=== PATIENT | male | born 1945 ===

== ENCOUNTER 2019-10-08 11:15 | Inpatient (IN) ==
[2019-10-08] MEDS ORDERED: ONDANSETRON 4 MG/2 ML VIAL IV PRN (14:16)
[2019-10-08] MEDS ORDERED: GLUCAGON 1 MG VIAL IM PRN (14:16)
[2019-10-08] MEDS ORDERED: DEXTROSE 10% 250 ML BAG IV PRN (14:16)
[2019-10-08] MEDS ORDERED: ACETAMINOPHEN 325 MG TABLET PO PRN (14:16)
[2019-10-08 14:57] LABS: Basophils % 0.5 % (0.0-0.8); Eosinophils % 0.1 % (0.00-10.9); Hemoglobin 12.9 GM/DL (14.0-18.0); Immature Granulocytes % 0.5 %; Immature Granulocytes Absolute 0.04 #; Lymphocytes # 0.6 10*3/uL (1.4-4.0); Lymphocytes % 7.8 % (21.2-54.2); Mean Corpuscular HGB Conc 29.3 GM/DL (32-36); Mean Corpuscular Volume 88.9 FL (87-102); Mean Platelet Volume 10.7 FL (9.6-12.0); Monocytes % 8.4 % (1.7-12.7); NRBC # 0.07 10*3/uL; Neutrophils % 82.7 % (38.7-73.9); Platelet Count 255 T/CUMM (130-400); Red Blood Count 4.95 MC/CUMM (3.8-5.5); Red Cell Distribution Width 19.3 % (9.3-17.3)
[2019-10-08] MEDS ORDERED: DILTIAZEM 50 MG/10 ML VIAL IV ONE (15:06)
[2019-10-08 15:18] LABS: Bilirubin,Total 1.3 MG/DL (0.2-1.0); Calcium 8.7 MG/DL (8.5-10.1); Total Protein 6.8 G/DL (6.4-8.3)
[2019-10-08] MEDS ORDERED: guaiFENesin/CODEINE 5 ML LIQUID PO PRN (15:38)
[2019-10-08] MEDS: dilTIAZem Drip 125 MG/125 ML PREMIX IV SCH (15:48)
[2019-10-08] MEDS: cefTRIAXone 1,000 MG in SYRINGE 1 EACH IV SCH (16:17)
[2019-10-08] MEDS: ASCORBIC ACID 500 MG TABLET PO SCH ×2 (16:20→21:50)
[2019-10-08] MEDS: FUROSEMIDE 40 MG/4 ML VIAL IV SCH (16:20)
[2019-10-08] MEDS: AZITHROMYCIN INJ 500 MG in SODIUM CHLORIDE 0.9% 250 ML IV SCH (16:21)
[2019-10-08] MEDS: INSULIN LISPRO 100 UNIT/ML SUBCUT SCH ×2 (17:26→21:50)
[2019-10-08] MEDS: ALBUTEROL/IPRATROPIUM 3 ML NEB RESP TX SCH (19:36)
[2019-10-08] MEDS: MAGNESIUM CHLORIDE 64 MG TABLET PO SCH (21:50)
[2019-10-08] MEDS: carvediloL 25 MG TABLET PO SCH (21:50)
[2019-10-09] MEDS: ALBUTEROL/IPRATROPIUM 3 ML NEB RESP TX SCH ×4 (00:47→20:13)
[2019-10-09 05:31] LABS: Albumin 2.4 G/DL (3.4-5.0); Bilirubin,Total 1.2 MG/DL (0.2-1.0); Calcium 8.2 MG/DL (8.5-10.1); Osmolality,Calculated 307.8 MOS/KG (273-304); Risk Ratio 2.33; Thyroid Stimulating Hormone 0.902 uIU/ml (0.358-3.74); Total Protein 5.7 G/DL (6.4-8.3)
[2019-10-09 05:39] LABS: Basophils % 0.4 % (0.0-0.8); Eosinophils % 0.1 % (0.00-10.9); Hematocrit 37.7 VOL% (42.0-52.0); Hemoglobin 11.4 GM/DL (14.0-18.0); Immature Granulocytes % 0.4 %; Immature Granulocytes Absolute 0.03 #; Lymphocytes # 0.7 10*3/uL (1.4-4.0); Lymphocytes % 9.9 % (21.2-54.2); Mean Corpuscular HGB Conc 30.2 GM/DL (32-36); Mean Corpuscular Volume 83.8 FL (87-102); Mean Platelet Volume 11.6 FL (9.6-12.0); Monocytes % 9.6 % (1.7-12.7); NRBC # 0.09 10*3/uL; Neutrophils % 79.6 % (38.7-73.9); Platelet Count 199 T/CUMM (130-400); Red Cell Distribution Width 17.4 % (9.3-17.3); White Blood Count 6.8 T/CUMM (4-12)
[2019-10-09 05:43] LABS: Hypochromasia 1+; Ovalocytes Slight; Platelet Estimate Adequate
[2019-10-09] MEDS: dilTIAZem Drip 125 MG/125 ML PREMIX IV SCH (07:31)
[2019-10-09] MEDS: INSULIN LISPRO 100 UNIT/ML SUBCUT SCH ×4 (07:56→22:48)
[2019-10-09] MEDS ORDERED: PANTOPRAZOLE 40 MG TABLET PO SCH (09:00)
[2019-10-09] MEDS ORDERED: ENOXAPARIN 30 MG/0.3 ML SYRINGE SUBCUT SCH (09:00)
[2019-10-09] MEDS: MAGNESIUM CHLORIDE 64 MG TABLET PO SCH ×2 (09:28→22:59)
[2019-10-09] MEDS: ASCORBIC ACID 500 MG TABLET PO SCH ×2 (09:28→22:22)
[2019-10-09] MEDS: DILTIAZEM 30 MG TABLET PO SCH ×3 (09:28→22:15)
[2019-10-09] MEDS: carvediloL 25 MG TABLET PO SCH ×2 (09:29→22:59)
[2019-10-09] MEDS: FUROSEMIDE 40 MG/4 ML VIAL IV SCH ×2 (09:29→16:24)
[2019-10-09] MEDS ORDERED: DIGOXIN 0.25 MG TABLET PO SCH (13:00)
[2019-10-09] MEDS ORDERED: DIGOXIN 0.125 MG TABLET PO SCH (13:00)
[2019-10-09] MEDS: AZITHROMYCIN INJ 500 MG in SODIUM CHLORIDE 0.9% 250 ML IV SCH (16:25)
[2019-10-09] MEDS: cefTRIAXone 1,000 MG in SYRINGE 1 EACH IV SCH (16:25)
[2019-10-09] MEDS: NOREPINEPHRINE 8 MG in SODIUM CHLORIDE 0.9% 242 ML IV PRN (17:16)
[2019-10-09] MEDS ORDERED: PHENYLEPHRINE DRIP 40 MG/250 ML PREMIX IV ONE (18:09)
[2019-10-09] MEDS: PHENYLEPHRINE DRIP 40 MG/250 ML PREMIX IV PRN ×2 (18:25→20:51)
[2019-10-09 18:31] LABS: Basophils % 0.5 % (0.0-0.8); Eosinophils % 0.2 % (0.00-10.9); Immature Granulocytes % 3.9 %; Immature Granulocytes Absolute 0.32 #; Lymphocytes # 1.6 10*3/uL (1.4-4.0); Lymphocytes % 18.9 % (21.2-54.2); Mean Corpuscular HGB Conc 29.3 GM/DL (32-36); Mean Corpuscular Volume 85.6 FL (87-102); Mean Platelet Volume 11.3 FL (9.6-12.0); Monocytes % 6.6 % (1.7-12.7); NRBC # 0.37 10*3/uL; Neutrophils % 69.9 % (38.7-73.9); Platelet Count 191 T/CUMM (130-400); Red Blood Count 5.34 MC/CUMM (3.8-5.5); Red Cell Distribution Width 17.6 % (9.3-17.3); White Blood Count 8.2 T/CUMM (4-12)
[2019-10-09 18:31] LABS: ABG Base Excess -3.5 MMOL/L (-2.5-2.5); ABG HCO3 21.2 MMOL/L (20-26); ABG Oxygen Saturation 81.3 % (95-100); ABG PH 7.274 (7.35-7.45); ABG TCO2 21.6 MMOL/L (23-27)
[2019-10-09 18:32] LABS: Albumin 2.6 G/DL (3.4-5.0); CKMB % 4.5 %; Hematocrit 45.7 VOL% (42.0-52.0); Hemoglobin 13.4 GM/DL (14.0-18.0); Total Protein 6.2 G/DL (6.4-8.3)
[2019-10-09 18:33] LABS: Troponin I 0.334 NG/ML (0.00-0.045)
[2019-10-09] MEDS ORDERED: NOREPINEPHRINE 4 MG/4 ML VIAL IV ONE (19:14)
[2019-10-09 19:24] LABS: ABG Base Excess -1.4 MMOL/L (-2.5-2.5); ABG HCO3 23.1 MMOL/L (20-26); ABG Oxygen Saturation 91.6 % (95-100); ABG PCO2 48.3 MM HG (35-48); ABG PH 7.324 (7.35-7.45); ABG TCO2 22.3 MMOL/L (23-27)
[2019-10-09 20:26] LABS: Apearance,Urine CLOUDY (Clear); Bilirubin,Urine Negative (Negative); Blood, Urine Large mg/dL (Negative); Glucose,Urine (UA) Negative (Negative); Ketones,Urine Negative (Negative); Nitrite,Urine Negative (Negative); Protein,Urine 30 MG/DL; RBC,Urine 149 /HPF (0-4); Urine Color Red (Yellow); Urine Urobilinogen < 2.0 EU/DL (0.2-1.0)
[2019-10-09] MEDS: PIPERACILLIN/TAZOBACTAM 3,375 MG in SODIUM CHLORIDE 0.9% 100 ML IV SCH (20:51)
[2019-10-09 23:46] LABS: CKMB % 4.6 %
[2019-10-09 23:51] LABS: Troponin I 0.405 NG/ML (0.00-0.045)
[2019-10-10] MEDS: INSULIN LISPRO 100 UNIT/ML SUBCUT SCH ×5 (00:59→23:55)
[2019-10-10] MEDS: FUROSEMIDE 40 MG/4 ML VIAL IV SCH ×2 (01:04→08:23)
[2019-10-10] MEDS: ALBUTEROL/IPRATROPIUM 3 ML NEB RESP TX SCH ×4 (01:41→20:07)
[2019-10-10] MEDS: NOREPINEPHRINE 8 MG in SODIUM CHLORIDE 0.9% 242 ML IV PRN ×2 (01:49→10:23)
[2019-10-10] MEDS: PIPERACILLIN/TAZOBACTAM 3,375 MG in SODIUM CHLORIDE 0.9% 100 ML IV SCH ×3 (02:49→17:40)
[2019-10-10 03:02] LABS: Calcium 8.2 MG/DL (8.5-10.1)
[2019-10-10 03:07] LABS: CKMB % 4.8 %
[2019-10-10 03:11] LABS: Troponin I 0.535 NG/ML (0.00-0.045)
[2019-10-10 03:38] LABS: Basophils % 0.2 % (0.0-0.8); Eosinophils % 0.1 % (0.00-10.9); Hemoglobin 13.8 GM/DL (14.0-18.0); Immature Granulocytes % 0.8 %; Immature Granulocytes Absolute 0.12 #; Lymphocytes # 0.9 10*3/uL (1.4-4.0); Lymphocytes % 5.7 % (21.2-54.2); Mean Corpuscular HGB Conc 29.7 GM/DL (32-36); Mean Corpuscular Volume 83.9 FL (87-102); Mean Platelet Volume 10.9 FL (9.6-12.0); Monocytes % 7.8 % (1.7-12.7); NRBC # 0.32 10*3/uL; Neutrophils % 85.4 % (38.7-73.9); Platelet Count 239 T/CUMM (130-400); Red Blood Count 5.53 MC/CUMM (3.8-5.5); Red Cell Distribution Width 17.7 % (9.3-17.3); White Blood Count 14.9 T/CUMM (4-12)
[2019-10-10 03:41] LABS: Hematocrit 46.4 VOL% (42.0-52.0)
[2019-10-10 04:50] LABS: CKMB % 4.8 %
[2019-10-10 04:52] LABS: Troponin I 0.55 NG/ML (0.00-0.045)
[2019-10-10 04:56] LABS: ABG HCO3 23.7 MMOL/L (20-26); ABG Oxygen Saturation 99.2 % (95-100); ABG PCO2 35.6 MM HG (35-48); ABG PH 7.441 (7.35-7.45); ABG TCO2 24.8 MMOL/L (23-27)
[2019-10-10 05:30] LABS: Platelet Estimate Normal
[2019-10-10 05:31] LABS: Hypochromasia Slight
[2019-10-10] MEDS: PANTOPRAZOLE 40 MG VIAL IV SCH (09:31)
[2019-10-10] MEDS: MAGNESIUM CHLORIDE 64 MG TABLET PO SCH ×2 (09:32→20:11)
[2019-10-10] MEDS: AZITHROMYCIN 250 MG TABLET PO SCH (09:32)
[2019-10-10] MEDS: ASCORBIC ACID 500 MG TABLET PO SCH ×2 (09:32→21:20)
[2019-10-10] MEDS: ENOXAPARIN 100 MG/ML SYRINGE SUBCUT SCH (11:39)
[2019-10-10] MEDS ORDERED: SODIUM BICARBONATE 50 MEQ/50 ML SYRINGE IV ONE (18:29)
[2019-10-10] MEDS ORDERED: EPINEPHrine 1 MG/10 ML SYRINGE ONE (18:29)
[2019-10-11] MEDS: DEXTROSE 10% 250 ML BAG IV PRN ×2 (00:17→05:44)
[2019-10-11] MEDS: ALBUTEROL/IPRATROPIUM 3 ML NEB RESP TX SCH ×3 (00:35→15:01)
[2019-10-11] MEDS: PIPERACILLIN/TAZOBACTAM 3,375 MG in SODIUM CHLORIDE 0.9% 100 ML IV SCH ×2 (02:43→14:32)
[2019-10-11 04:21] LABS: ABG Base Excess 2.2 MMOL/L (-2.5-2.5); ABG HCO3 23.5 MMOL/L (20-26); ABG Oxygen Saturation 99.1 % (95-100); ABG PCO2 27.2 MM HG (35-48); ABG PH 7.555 (7.35-7.45); ABG PO2 229.3 MM HG (80-95); ABG TCO2 24.4 MMOL/L (23-27); Allen Test Positive; Pt O2 Delivery Device Ventilator
[2019-10-11 04:52] LABS: Basophils % 0.5 % (0.0-0.8); Eosinophils # 0.1 10*3/uL (0.0-0.87); Eosinophils % 1.1 % (0.00-10.9); Hematocrit 37.5 VOL% (42.0-52.0); Hemoglobin 12.3 GM/DL (14.0-18.0); Immature Granulocytes % 0.5 %; Immature Granulocytes Absolute 0.04 #; Lymphocytes # 1.3 10*3/uL (1.4-4.0); Lymphocytes % 17.7 % (21.2-54.2); Mean Corpuscular HGB Conc 32.8 GM/DL (32-36); Mean Corpuscular Volume 84.7 FL (87-102); Monocytes % 9.3 % (1.7-12.7); NRBC # 0.11 10*3/uL; Neutrophils % 70.9 % (38.7-73.9); Platelet Count 172 T/CUMM (130-400); Red Blood Count 4.43 MC/CUMM (3.8-5.5); Red Cell Distribution Width 19.9 % (9.3-17.3); White Blood Count 7.4 T/CUMM (4-12)
[2019-10-11 05:26] LABS: Calcium 8.3 MG/DL (8.5-10.1); Osmolality,Calculated 316.4 MOS/KG (273-304)
[2019-10-11] MEDS: INSULIN LISPRO 100 UNIT/ML SUBCUT SCH ×3 (05:44→18:38)
[2019-10-11] MEDS ORDERED: guaiFENesin 200 MG/10 ML UDCUP PER TUBE SCH ×2 (09:00)
[2019-10-11] MEDS: MAGNESIUM CHLORIDE 64 MG TABLET PO SCH ×2 (09:26→20:16)
[2019-10-11] MEDS: guaiFENesin 200 MG/10 ML UDCUP PER TUBE SCH ×3 (09:26→20:59)
[2019-10-11] MEDS: AZITHROMYCIN 250 MG TABLET PO SCH (09:26)
[2019-10-11] MEDS: PANTOPRAZOLE 40 MG VIAL IV SCH (09:28)
[2019-10-11] MEDS: ASCORBIC ACID 500 MG TABLET PO SCH ×2 (09:33→20:59)
[2019-10-11] MEDS: ENOXAPARIN 100 MG/ML SYRINGE SUBCUT SCH (12:07)
[2019-10-12] MEDS: INSULIN LISPRO 100 UNIT/ML SUBCUT SCH ×4 (00:37→17:42)
[2019-10-12] MEDS: PIPERACILLIN/TAZOBACTAM 3,375 MG in SODIUM CHLORIDE 0.9% 100 ML IV SCH (02:56)
[2019-10-12] MEDS: guaiFENesin 200 MG/10 ML UDCUP PER TUBE SCH ×4 (02:56→21:29)
[2019-10-12 03:37] LABS: Basophils % 0.5 % (0.0-0.8); Eosinophils # 0.1 10*3/uL (0.0-0.87); Eosinophils % 1.9 % (0.00-10.9); Immature Granulocytes % 0.4 %; Immature Granulocytes Absolute 0.03 #; Lymphocytes # 1.1 10*3/uL (1.4-4.0); Lymphocytes % 14.8 % (21.2-54.2); Mean Corpuscular HGB Conc 34.3 GM/DL (32-36); Mean Corpuscular Volume 89.3 FL (87-102); Mean Platelet Volume 11.7 FL (9.6-12.0); Monocytes % 10.3 % (1.7-12.7); NRBC # 0.03 10*3/uL; Neutrophils % 72.1 % (38.7-73.9); Platelet Count 158 T/CUMM (130-400); Red Blood Count 3.92 MC/CUMM (3.8-5.5); Red Cell Distribution Width 21.5 % (9.3-17.3); White Blood Count 7.3 T/CUMM (4-12)
[2019-10-12 03:51] LABS: Calcium 7.7 MG/DL (8.5-10.1); Osmolality,Calculated 313.6 MOS/KG (273-304)
[2019-10-12] MEDS: ASCORBIC ACID 500 MG TABLET PO SCH ×2 (08:37→21:28)
[2019-10-12] MEDS: MAGNESIUM CHLORIDE 64 MG TABLET PO SCH ×2 (08:37→21:29)
[2019-10-12] MEDS: PANTOPRAZOLE 40 MG VIAL IV SCH (08:37)
[2019-10-12] MEDS: AZITHROMYCIN 250 MG TABLET PO SCH (08:37)
[2019-10-12 08:53] LABS: ABG Base Excess 2.9 MMOL/L (-2.5-2.5); ABG PCO2 36.8 MM HG (35-48); ABG PH 7.465 (7.35-7.45); ABG TCO2 23.1 MMOL/L (23-27)
[2019-10-12] MEDS: FUROSEMIDE INJ 100 MG in SODIUM CHLORIDE 0.9% 90 ML IV SCH ×3 (10:50→21:14)
[2019-10-12] MEDS: cefTRIAXone 1,000 MG in SYRINGE 1 EACH IV SCH (13:05)
[2019-10-12] MEDS: ENOXAPARIN 100 MG/ML SYRINGE SUBCUT SCH (13:05)
[2019-10-12] MEDS: metroNIDAZOLE INJ 500 MG in PREMIX 1 EACH IV SCH ×2 (13:06→21:28)
[2019-10-13] MEDS: INSULIN LISPRO 100 UNIT/ML SUBCUT SCH ×4 (01:38→18:09)
[2019-10-13 04:39] LABS: ABG Base Excess 5.1 MMOL/L (-2.5-2.5); ABG Oxygen Saturation 98.3 % (95-100); ABG PCO2 41.8 MM HG (35-48); ABG PH 7.456 (7.35-7.45); ABG TCO2 25.9 MMOL/L (23-27); Allen Test Positive; Pt O2 Delivery Device Ventilator
[2019-10-13] MEDS: FUROSEMIDE INJ 100 MG in SODIUM CHLORIDE 0.9% 90 ML IV SCH ×2 (04:47→06:37)
[2019-10-13] MEDS: guaiFENesin 200 MG/10 ML UDCUP PER TUBE SCH ×4 (05:15→20:36)
[2019-10-13 06:07] LABS: Basophils % 0.5 % (0.0-0.8); Eosinophils # 0.1 10*3/uL (0.0-0.87); Eosinophils % 1.8 % (0.00-10.9); Hematocrit 38.4 VOL% (42.0-52.0); Hemoglobin 11.9 GM/DL (14.0-18.0); Immature Granulocytes % 0.6 %; Immature Granulocytes Absolute 0.04 #; Lymphocytes # 0.8 10*3/uL (1.4-4.0); Lymphocytes % 12.4 % (21.2-54.2); Mean Corpuscular Volume 85.7 FL (87-102); Mean Platelet Volume 11.1 FL (9.6-12.0); Monocytes % 10.2 % (1.7-12.7); NRBC # 0.04 10*3/uL; Neutrophils % 74.5 % (38.7-73.9); Platelet Count 156 T/CUMM (130-400); Red Blood Count 4.48 MC/CUMM (3.8-5.5); Red Cell Distribution Width 19.8 % (9.3-17.3); White Blood Count 6.6 T/CUMM (4-12)
[2019-10-13] MEDS: metroNIDAZOLE INJ 500 MG in PREMIX 1 EACH IV SCH ×3 (06:13→20:34)
[2019-10-13 06:27] LABS: Osmolality,Calculated 311.4 MOS/KG (273-304)
[2019-10-13] MEDS: MAGNESIUM CHLORIDE 64 MG TABLET PO SCH ×2 (08:40→20:36)
[2019-10-13] MEDS: PANTOPRAZOLE 40 MG VIAL IV SCH (08:40)
[2019-10-13] MEDS: ASCORBIC ACID 500 MG TABLET PO SCH ×2 (08:40→20:36)
[2019-10-13] MEDS: ENOXAPARIN 100 MG/ML SYRINGE SUBCUT SCH (11:58)
[2019-10-13] MEDS: cefTRIAXone 1,000 MG in SYRINGE 1 EACH IV SCH (11:58)
[2019-10-13] MEDS: FUROSEMIDE 40 MG/4 ML VIAL IV SCH (20:36)
[2019-10-14] MEDS: INSULIN LISPRO 100 UNIT/ML SUBCUT SCH ×4 (01:23→18:39)
[2019-10-14] MEDS: guaiFENesin 200 MG/10 ML UDCUP PER TUBE SCH ×4 (04:37→20:32)
[2019-10-14] MEDS: metroNIDAZOLE INJ 500 MG in PREMIX 1 EACH IV SCH ×3 (04:51→23:32)
[2019-10-14 05:07] LABS: ABG Base Excess 6.5 MMOL/L (-2.5-2.5); ABG HCO3 30.3 MMOL/L (20-26); ABG Oxygen Saturation 95.8 % (95-100); ABG PCO2 47.4 MM HG (35-48); ABG PH 7.435 (7.35-7.45); ABG PO2 75.3 MM HG (80-95); ABG TCO2 28.1 MMOL/L (23-27); Allen Test Positive; Pt O2 Delivery Device Ventilator
[2019-10-14 06:21] LABS: Basophils % 0.4 % (0.0-0.8); Eosinophils # 0.1 10*3/uL (0.0-0.87); Eosinophils % 1.4 % (0.00-10.9); Hematocrit 30.2 VOL% (42.0-52.0); Hemoglobin 11.3 GM/DL (14.0-18.0); Immature Granulocytes % 0.7 %; Immature Granulocytes Absolute 0.05 #; Lymphocytes # 0.7 10*3/uL (1.4-4.0); Lymphocytes % 9.5 % (21.2-54.2); Mean Corpuscular HGB Conc 37.4 GM/DL (32-36); Mean Corpuscular Volume 90.4 FL (87-102); Mean Platelet Volume 11.5 FL (9.6-12.0); Monocytes % 12.4 % (1.7-12.7); NRBC # 0.05 10*3/uL; Neutrophils % 75.6 % (38.7-73.9); Platelet Count 134 T/CUMM (130-400); Red Blood Count 3.34 MC/CUMM (3.8-5.5); Red Cell Distribution Width 20.6 % (9.3-17.3); White Blood Count 7.3 T/CUMM (4-12)
[2019-10-14 06:35] LABS: Calcium 7.9 MG/DL (8.5-10.1); Osmolality,Calculated 312.3 MOS/KG (273-304)
[2019-10-14] MEDS ORDERED: POTASSIUM CHLORIDE 20 MEQ/15 ML UDCUP PER TUBE PRN (07:48)
[2019-10-14] MEDS: FUROSEMIDE 40 MG/4 ML VIAL IV SCH (10:28)
[2019-10-14] MEDS: PANTOPRAZOLE 40 MG VIAL IV SCH (10:28)
[2019-10-14] MEDS: MAGNESIUM CHLORIDE 64 MG TABLET PO SCH ×2 (10:28→20:32)
[2019-10-14] MEDS: ASCORBIC ACID 500 MG TABLET PO SCH ×2 (10:28→20:32)
[2019-10-14] MEDS: ENOXAPARIN 100 MG/ML SYRINGE SUBCUT SCH (15:01)
[2019-10-14] MEDS: cefTRIAXone 1,000 MG in SYRINGE 1 EACH IV SCH (15:11)
[2019-10-14] MEDS: POTASSIUM CHLORIDE RIDER 10 MEQ in PREMIX 1 EACH IV PRN ×2 (17:40→18:42)
[2019-10-14] MEDS: APIXABAN 5 MG TABLET PO SCH (20:32)
[2019-10-15] MEDS ORDERED: FUROSEMIDE 40 MG/4 ML VIAL IV ONE (00:24)
[2019-10-15] MEDS: INSULIN LISPRO 100 UNIT/ML SUBCUT SCH ×4 (00:26→18:38)
[2019-10-15] MEDS: guaiFENesin 200 MG/10 ML UDCUP PER TUBE SCH ×4 (04:21→22:03)
[2019-10-15 05:13] LABS: Allen Test Positive
[2019-10-15 05:14] LABS: ABG Base Excess 5.1 MMOL/L (-2.5-2.5); ABG Oxygen Saturation 97.2 % (95-100); ABG PCO2 52.8 MM HG (35-48); ABG PH 7.384 (7.35-7.45); ABG TCO2 27.9 MMOL/L (23-27)
[2019-10-15 06:15] LABS: Basophils # 0.1 10*3/uL (0.0-0.2); Basophils % 0.7 % (0.0-0.8); Eosinophils % 0.2 % (0.00-10.9); Hemoglobin 11.9 GM/DL (14.0-18.0); Immature Granulocytes Absolute 0.09 #; Lymphocytes # 0.8 10*3/uL (1.4-4.0); Lymphocytes % 9.4 % (21.2-54.2); Mean Corpuscular Volume 89.3 FL (87-102); Mean Platelet Volume 11.8 FL (9.6-12.0); Monocytes % 12.2 % (1.7-12.7); NRBC # 0.08 10*3/uL; Neutrophils % 76.5 % (38.7-73.9); Platelet Count 153 T/CUMM (130-400); Red Blood Count 3.92 MC/CUMM (3.8-5.5); Red Cell Distribution Width 21.4 % (9.3-17.3)
[2019-10-15] MEDS: metroNIDAZOLE INJ 500 MG in PREMIX 1 EACH IV SCH ×3 (06:21→23:12)
[2019-10-15 06:34] LABS: Calcium 8.6 MG/DL (8.5-10.1); Osmolality,Calculated 316.3 MOS/KG (273-304)
[2019-10-15] MEDS ORDERED: FUROSEMIDE 40 MG/4 ML VIAL IV SCH (08:54)
[2019-10-15] MEDS: PANTOPRAZOLE 40 MG VIAL IV SCH (09:02)
[2019-10-15] MEDS: MAGNESIUM CHLORIDE 64 MG TABLET PO SCH ×2 (09:06→22:03)
[2019-10-15] MEDS: ASCORBIC ACID 500 MG TABLET PO SCH ×2 (09:06→22:03)
[2019-10-15] MEDS: APIXABAN 5 MG TABLET PO SCH ×2 (09:06→22:03)
[2019-10-15] MEDS: METOPROLOL TARTRATE 25 MG TABLET PO SCH ×2 (10:15→22:03)
[2019-10-15] MEDS: cefTRIAXone 1,000 MG in SYRINGE 1 EACH IV SCH (11:50)
[2019-10-15] MEDS: FUROSEMIDE 40 MG/4 ML VIAL IV SCH (15:41)
[2019-10-16 04:12] LABS: ABG Base Excess 2.4 MMOL/L (-2.5-2.5); ABG HCO3 26.5 MMOL/L (20-26); ABG Oxygen Saturation 96.7 % (95-100); ABG PCO2 53.3 MM HG (35-48); ABG PH 7.348 (7.35-7.45); ABG PO2 89.1 MM HG (80-95); ABG TCO2 25.7 MMOL/L (23-27); Allen Test Positive
[2019-10-16] MEDS: INSULIN LISPRO 100 UNIT/ML SUBCUT SCH ×4 (04:27→18:38)
[2019-10-16] MEDS: guaiFENesin 200 MG/10 ML UDCUP PER TUBE SCH ×4 (04:27→20:38)
[2019-10-16 06:44] LABS: Calcium 8.8 MG/DL (8.5-10.1); Osmolality,Calculated 325.3 MOS/KG (273-304)
[2019-10-16 06:58] LABS: Basophils # 0.1 10*3/uL (0.0-0.2); Basophils % 0.7 % (0.0-0.8); Eosinophils % 0.1 % (0.00-10.9); Immature Granulocytes % 1.2 %; Immature Granulocytes Absolute 0.13 #; Lymphocytes # 0.8 10*3/uL (1.4-4.0); Lymphocytes % 7.3 % (21.2-54.2); Mean Corpuscular HGB Conc 29.8 GM/DL (32-36); Mean Corpuscular Volume 84.1 FL (87-102); Mean Platelet Volume 12.4 FL (9.6-12.0); Monocytes % 10.9 % (1.7-12.7); NRBC # 0.16 10*3/uL; Neutrophils % 79.8 % (38.7-73.9); Platelet Count 206 T/CUMM (130-400); Red Blood Count 5.23 MC/CUMM (3.8-5.5); Red Cell Distribution Width 18.7 % (9.3-17.3); White Blood Count 10.6 T/CUMM (4-12)
[2019-10-16 06:59] LABS: Hemoglobin 13.1 GM/DL (14.0-18.0)
[2019-10-16 07:07] LABS: Anisocytosis 1+; Hypochromasia 1+; Microcytosis 1+; Polychromasia Slight
[2019-10-16 07:08] LABS: Ovalocytes Slight; Platelet Estimate Normal; Target Cells Slight
[2019-10-16] MEDS: metroNIDAZOLE INJ 500 MG in PREMIX 1 EACH IV SCH ×3 (07:15→22:32)
[2019-10-16] MEDS: FUROSEMIDE 40 MG/4 ML VIAL IV SCH ×2 (07:57→15:52)
[2019-10-16] MEDS: APIXABAN 5 MG TABLET PO SCH ×2 (08:28→20:38)
[2019-10-16] MEDS: METOPROLOL TARTRATE 25 MG TABLET PO SCH ×2 (08:28→20:38)
[2019-10-16] MEDS: ASCORBIC ACID 500 MG TABLET PO SCH ×2 (08:28→20:38)
[2019-10-16] MEDS: PANTOPRAZOLE 40 MG VIAL IV SCH (08:29)
[2019-10-16] MEDS: MAGNESIUM CHLORIDE 64 MG TABLET PO SCH (08:30)
[2019-10-16] MEDS ORDERED: METOPROLOL TARTRATE 25 MG TABLET PO ONE (10:20)
[2019-10-16] MEDS: cefTRIAXone 1,000 MG in SYRINGE 1 EACH IV SCH (11:44)
[2019-10-16] MEDS ORDERED: ALBUTEROL/IPRATROPIUM 3 ML NEB RESP TX PRN (15:51)
[2019-10-17] MEDS: INSULIN LISPRO 100 UNIT/ML SUBCUT SCH ×4 (00:48→18:50)
[2019-10-17] MEDS: guaiFENesin 200 MG/10 ML UDCUP PER TUBE SCH ×4 (03:20→21:09)
[2019-10-17] MEDS: metroNIDAZOLE INJ 500 MG in PREMIX 1 EACH IV SCH ×3 (06:32→23:12)
[2019-10-17] MEDS: FUROSEMIDE 40 MG/4 ML VIAL IV SCH (09:33)
[2019-10-17] MEDS: APIXABAN 5 MG TABLET PO SCH ×2 (09:35→21:10)
[2019-10-17] MEDS: METOPROLOL TARTRATE 25 MG TABLET PO SCH ×2 (09:35→21:19)
[2019-10-17] MEDS: ASCORBIC ACID 500 MG TABLET PO SCH ×2 (09:35→21:09)
[2019-10-17] MEDS: PANTOPRAZOLE 40 MG VIAL IV SCH (09:35)
[2019-10-17 10:47] LABS: Basophils # 0.1 10*3/uL (0.0-0.2); Basophils % 0.6 % (0.0-0.8); Eosinophils # 0.1 10*3/uL (0.0-0.87); Eosinophils % 1.1 % (0.00-10.9); Hemoglobin 12.8 GM/DL (14.0-18.0); Immature Granulocytes % 1.4 %; Immature Granulocytes Absolute 0.11 #; Lymphocytes # 0.8 10*3/uL (1.4-4.0); Lymphocytes % 10.2 % (21.2-54.2); Mean Corpuscular HGB Conc 33.7 GM/DL (32-36); Mean Corpuscular Volume 89.6 FL (87-102); Mean Platelet Volume 12.1 FL (9.6-12.0); Monocytes % 12.7 % (1.7-12.7); NRBC # 0.17 10*3/uL; Platelet Count 183 T/CUMM (130-400); Red Blood Count 4.24 MC/CUMM (3.8-5.5); Red Cell Distribution Width 21.6 % (9.3-17.3)
[2019-10-17 12:25] LABS: Calcium 8.4 MG/DL (8.5-10.1); Osmolality,Calculated 329.4 MOS/KG (273-304)
[2019-10-17] MEDS: cefTRIAXone 1,000 MG in SYRINGE 1 EACH IV SCH (12:53)
[2019-10-17] MEDS: FUROSEMIDE 80 MG TABLET NG SCH (15:47)
[2019-10-17] MEDS ORDERED: FUROSEMIDE 80 MG TABLET PO SCH (16:00)
[2019-10-18] MEDS: INSULIN LISPRO 100 UNIT/ML SUBCUT SCH ×4 (00:17→19:36)
[2019-10-18] MEDS: guaiFENesin 200 MG/10 ML UDCUP PER TUBE SCH ×4 (03:51→21:19)
[2019-10-18] MEDS: metroNIDAZOLE INJ 500 MG in PREMIX 1 EACH IV SCH ×3 (06:40→22:34)
[2019-10-18] MEDS: ASCORBIC ACID 500 MG TABLET PO SCH ×2 (08:39→21:19)
[2019-10-18 09:11] LABS: Basophils # 0.1 10*3/uL (0.0-0.2); Basophils % 0.6 % (0.0-0.8); Eosinophils % 0.4 % (0.00-10.9); Hemoglobin 12.2 GM/DL (14.0-18.0); Immature Granulocytes % 0.9 %; Immature Granulocytes Absolute 0.07 #; Lymphocytes # 0.9 10*3/uL (1.4-4.0); Lymphocytes % 11.5 % (21.2-54.2); Mean Corpuscular HGB Conc 32.1 GM/DL (32-36); Mean Platelet Volume 11.5 FL (9.6-12.0); Monocytes % 10.5 % (1.7-12.7); NRBC # 0.11 10*3/uL; Neutrophils % 76.1 % (38.7-73.9); Platelet Count 185 T/CUMM (130-400); Red Blood Count 4.37 MC/CUMM (3.8-5.5); Red Cell Distribution Width 20.6 % (9.3-17.3)
[2019-10-18 09:37] LABS: Calcium 8.2 MG/DL (8.5-10.1); Prealbumin 13.4 MG/DL (20-40)
[2019-10-18] MEDS: FUROSEMIDE 80 MG TABLET NG SCH (10:04)
[2019-10-18] MEDS: APIXABAN 5 MG TABLET PO SCH ×2 (10:14→21:20)
[2019-10-18] MEDS: PANTOPRAZOLE 40 MG VIAL IV SCH (10:14)
[2019-10-18] MEDS: METOPROLOL TARTRATE 25 MG TABLET PO SCH ×2 (10:14→21:19)
[2019-10-18] MEDS ORDERED: DEXTROSE 5% 1,000 ML IV SCH (12:30)
[2019-10-18] MEDS: cefTRIAXone 1,000 MG in SYRINGE 1 EACH IV SCH (13:33)
[2019-10-18] MEDS: FUROSEMIDE 40 MG TABLET PO SCH (15:59)
[2019-10-19] MEDS: guaiFENesin 200 MG/10 ML UDCUP PER TUBE SCH ×4 (02:43→21:04)
[2019-10-19] MEDS: INSULIN LISPRO 100 UNIT/ML SUBCUT SCH ×4 (06:00→17:10)
[2019-10-19 06:05] LABS: Basophils # 0.1 10*3/uL (0.0-0.2); Basophils % 0.9 % (0.0-0.8); Eosinophils % 0.3 % (0.00-10.9); Hematocrit 35.9 VOL% (42.0-52.0); Hemoglobin 12.5 GM/DL (14.0-18.0); Immature Granulocytes Absolute 0.07 #; Lymphocytes # 1.1 10*3/uL (1.4-4.0); Lymphocytes % 16.1 % (21.2-54.2); Mean Corpuscular HGB Conc 34.8 GM/DL (32-36); Mean Platelet Volume 12.4 FL (9.6-12.0); Monocytes % 11.3 % (1.7-12.7); Neutrophils % 70.4 % (38.7-73.9); Platelet Count 201 T/CUMM (130-400); Red Blood Count 4.08 MC/CUMM (3.8-5.5); Red Cell Distribution Width 21.1 % (9.3-17.3); White Blood Count 6.9 T/CUMM (4-12)
[2019-10-19 06:26] LABS: Calcium 8.6 MG/DL (8.5-10.1); Osmolality,Calculated 334.7 MOS/KG (273-304)
[2019-10-19] MEDS: metroNIDAZOLE INJ 500 MG in PREMIX 1 EACH IV SCH ×3 (07:00→23:06)
[2019-10-19] MEDS: METOPROLOL TARTRATE 25 MG TABLET PO SCH ×2 (09:23→21:03)
[2019-10-19] MEDS: APIXABAN 5 MG TABLET PO SCH ×2 (09:23→21:03)
[2019-10-19] MEDS: FUROSEMIDE 40 MG TABLET PO SCH (09:24)
[2019-10-19] MEDS: PANTOPRAZOLE 40 MG VIAL IV SCH (09:27)
[2019-10-19] MEDS: ASCORBIC ACID 500 MG TABLET PO SCH ×2 (09:27→21:03)
[2019-10-19] MEDS ORDERED: TUBERCULIN SKIN TEST 0.1 ML SYRINGE INTRADERM ONE (09:27)
[2019-10-19] MEDS ORDERED: METOPROLOL TARTRATE 5 MG/5 ML VIAL IV ONE (10:58)
[2019-10-19] MEDS ORDERED: SODIUM CHLORIDE 0.45% 1,000 ML IV SCH (11:00)
[2019-10-19] MEDS ORDERED: SODIUM CHLORIDE 0.9% 1,000 ML IV SCH (11:00)
[2019-10-19] MEDS: cefTRIAXone 1,000 MG in SYRINGE 1 EACH IV SCH (12:30)
[2019-10-19] MEDS: dilTIAZem Drip 125 MG/125 ML PREMIX IV SCH (18:09)
[2019-10-19] MEDS: DEXTROSE 5% 1,000 ML IV SCH (18:10)
[2019-10-20] MEDS: INSULIN LISPRO 100 UNIT/ML SUBCUT SCH ×4 (01:08→17:04)
[2019-10-20] MEDS: DEXTROSE 5% 1,000 ML IV SCH ×2 (03:48→12:35)
[2019-10-20] MEDS: guaiFENesin 200 MG/10 ML UDCUP PER TUBE SCH ×4 (03:52→21:27)
[2019-10-20 05:07] LABS: Basophils # 0.1 10*3/uL (0.0-0.2); Basophils % 0.9 % (0.0-0.8); Eosinophils % 0.6 % (0.00-10.9); Hematocrit 36.8 VOL% (42.0-52.0); Hemoglobin 11.4 GM/DL (14.0-18.0); Immature Granulocytes % 0.7 %; Immature Granulocytes Absolute 0.05 #; Lymphocytes % 14.2 % (21.2-54.2); Mean Corpuscular Volume 88.5 FL (87-102); Mean Platelet Volume 11.5 FL (9.6-12.0); Monocytes % 9.4 % (1.7-12.7); NRBC # 0.07 10*3/uL; Neutrophils % 74.2 % (38.7-73.9); Platelet Count 188 T/CUMM (130-400); Red Blood Count 4.16 MC/CUMM (3.8-5.5); Red Cell Distribution Width 21.2 % (9.3-17.3); White Blood Count 6.7 T/CUMM (4-12)
[2019-10-20 05:59] LABS: Calcium 8.2 MG/DL (8.5-10.1); Osmolality,Calculated 336.1 MOS/KG (273-304)
[2019-10-20] MEDS: ASCORBIC ACID 500 MG TABLET PO SCH ×2 (09:37→21:27)
[2019-10-20] MEDS: METOPROLOL TARTRATE 25 MG TABLET PO SCH ×2 (09:37→21:26)
[2019-10-20] MEDS: PANTOPRAZOLE 40 MG VIAL IV SCH (09:38)
[2019-10-20] MEDS: APIXABAN 5 MG TABLET PO SCH ×2 (09:38→21:26)
[2019-10-20 12:57] LABS: Lymphocytes,Pleural Fluid 24 %; Monocytes,Pleural Fluid 7 %; Neutrophils,Pleural Fluid 69 %
[2019-10-20 13:10] LABS: RBC,Pleural Fluid 25674 T/CUMM
[2019-10-20 13:16] LABS: LDH,Body Fluid 176 U/L; Total Protein,Body Fluid < 2.0 G/DL
[2019-10-20] MEDS: dilTIAZem Drip 125 MG/125 ML PREMIX IV SCH (17:07)
[2019-10-21] MEDS: DEXTROSE 5% 1,000 ML IV SCH ×2 (02:33→09:13)
[2019-10-21] MEDS: INSULIN LISPRO 100 UNIT/ML SUBCUT SCH ×4 (02:36→18:07)
[2019-10-21] MEDS: guaiFENesin 200 MG/10 ML UDCUP PER TUBE SCH ×4 (03:54→21:24)
[2019-10-21 06:32] LABS: Basophils % 0.4 % (0.0-0.8); Eosinophils # 0.1 10*3/uL (0.0-0.87); Eosinophils % 1.4 % (0.00-10.9); Hematocrit 37.1 VOL% (42.0-52.0); Immature Granulocytes % 0.8 %; Immature Granulocytes Absolute 0.07 #; Lymphocytes % 11.3 % (21.2-54.2); Mean Corpuscular Volume 89.4 FL (87-102); Mean Platelet Volume 12.7 FL (9.6-12.0); Monocytes % 6.5 % (1.7-12.7); NRBC # 0.09 10*3/uL; Neutrophils % 79.6 % (38.7-73.9); Platelet Count 192 T/CUMM (130-400); Red Blood Count 4.15 MC/CUMM (3.8-5.5); Red Cell Distribution Width 22.2 % (9.3-17.3); White Blood Count 9.1 T/CUMM (4-12)
[2019-10-21 07:22] LABS: Calcium 8.3 MG/DL (8.5-10.1); Osmolality,Calculated 326.4 MOS/KG (273-304)
[2019-10-21] MEDS: METOPROLOL TARTRATE 25 MG TABLET PO SCH ×2 (08:54→21:24)
[2019-10-21] MEDS: APIXABAN 5 MG TABLET PO SCH ×2 (08:54→21:25)
[2019-10-21] MEDS: ASCORBIC ACID 500 MG TABLET PO SCH ×2 (08:55→21:24)
[2019-10-21] MEDS: hydrALAZINE 10 MG TABLET PO SCH ×2 (08:55→21:25)
[2019-10-21] MEDS: PANTOPRAZOLE 40 MG VIAL IV SCH (08:55)
[2019-10-21] MEDS: FUROSEMIDE 40 MG/5 ML UDCUP PO SCH (15:42)
[2019-10-21] MEDS: dilTIAZem Drip 125 MG/125 ML PREMIX IV SCH (16:44)
[2019-10-22] MEDS: INSULIN LISPRO 100 UNIT/ML SUBCUT SCH ×5 (00:32→21:14)
[2019-10-22] MEDS: guaiFENesin 200 MG/10 ML UDCUP PER TUBE SCH ×4 (04:17→21:14)
[2019-10-22 05:45] LABS: Basophils % 0.4 % (0.0-0.8); Eosinophils # 0.1 10*3/uL (0.0-0.87); Eosinophils % 1.4 % (0.00-10.9); Hematocrit 35.5 VOL% (42.0-52.0); Hemoglobin 12.7 GM/DL (14.0-18.0); Immature Granulocytes % 0.6 %; Immature Granulocytes Absolute 0.05 #; Lymphocytes % 12.5 % (21.2-54.2); Mean Corpuscular HGB Conc 35.8 GM/DL (32-36); Mean Corpuscular Volume 90.1 FL (87-102); Mean Platelet Volume 12.7 FL (9.6-12.0); Monocytes % 6.9 % (1.7-12.7); NRBC # 0.06 10*3/uL; Neutrophils % 78.2 % (38.7-73.9); Platelet Count 218 T/CUMM (130-400); Red Blood Count 3.94 MC/CUMM (3.8-5.5); Red Cell Distribution Width 22.4 % (9.3-17.3); White Blood Count 7.9 T/CUMM (4-12)
[2019-10-22 06:06] LABS: Hypochromasia 1+; Target Cells Slight
[2019-10-22 06:07] LABS: Anisocytosis 1+; Ovalocytes Slight
[2019-10-22 06:08] LABS: Platelet Estimate Normal
[2019-10-22 06:10] LABS: Calcium 8.1 MG/DL (8.5-10.1); Osmolality,Calculated 318.6 MOS/KG (273-304)
[2019-10-22] MEDS ORDERED: TUBERCULIN SKIN TEST 0.1 ML SYRINGE INTRADERM ONE (07:49)
[2019-10-22] MEDS: FUROSEMIDE 40 MG/5 ML UDCUP PO SCH ×2 (09:11→16:33)
[2019-10-22] MEDS: ASCORBIC ACID 500 MG TABLET PO SCH ×2 (09:12→21:14)
[2019-10-22] MEDS: PANTOPRAZOLE 40 MG VIAL IV SCH (09:12)
[2019-10-22] MEDS: METOPROLOL TARTRATE 25 MG TABLET PO SCH ×2 (09:12→21:14)
[2019-10-22] MEDS: hydrALAZINE 10 MG TABLET PO SCH ×2 (09:12→21:14)
[2019-10-22] MEDS: APIXABAN 5 MG TABLET PO SCH ×2 (09:12→21:14)
[2019-10-22] MEDS: dilTIAZem Drip 125 MG/125 ML PREMIX IV SCH (18:09)
[2019-10-23] MEDS: guaiFENesin 200 MG/10 ML UDCUP PER TUBE SCH ×4 (03:12→21:23)
[2019-10-23] MEDS: FUROSEMIDE 40 MG/5 ML UDCUP PO SCH ×2 (09:13→16:38)
[2019-10-23] MEDS: PANTOPRAZOLE 40 MG VIAL IV SCH (09:14)
[2019-10-23] MEDS: METOPROLOL TARTRATE 25 MG TABLET PO SCH ×2 (09:14→21:23)
[2019-10-23] MEDS: hydrALAZINE 10 MG TABLET PO SCH ×2 (09:14→21:24)
[2019-10-23] MEDS: ASCORBIC ACID 500 MG TABLET PO SCH ×2 (09:14→21:24)
[2019-10-23] MEDS: APIXABAN 5 MG TABLET PO SCH ×2 (09:14→21:24)
[2019-10-23] MEDS: INSULIN LISPRO 100 UNIT/ML SUBCUT SCH ×4 (09:20→21:23)
[2019-10-23 11:58] LABS: Basophils # 0.1 10*3/uL (0.0-0.2); Basophils % 0.9 % (0.0-0.8); Eosinophils # 0.1 10*3/uL (0.0-0.87); Eosinophils % 1.6 % (0.00-10.9); Hematocrit 44.8 VOL% (42.0-52.0); Hemoglobin 13.2 GM/DL (14.0-18.0); Immature Granulocytes % 0.8 %; Immature Granulocytes Absolute 0.07 #; Lymphocytes % 11.4 % (21.2-54.2); Mean Corpuscular HGB Conc 29.5 GM/DL (32-36); Mean Corpuscular Volume 84.2 FL (87-102); Mean Platelet Volume 12.4 FL (9.6-12.0); Monocytes % 7.6 % (1.7-12.7); NRBC # 0.04 10*3/uL; Neutrophils % 77.7 % (38.7-73.9); Platelet Count 254 T/CUMM (130-400); Red Blood Count 5.32 MC/CUMM (3.8-5.5); Red Cell Distribution Width 21.2 % (9.3-17.3); White Blood Count 8.9 T/CUMM (4-12)
[2019-10-23 12:03] LABS: Calcium 8.3 MG/DL (8.5-10.1)
[2019-10-23 12:19] LABS: Platelet Estimate Normal
[2019-10-23 12:20] LABS: Anisocytosis 2+
[2019-10-23 12:21] LABS: Macrocytosis 1+
[2019-10-23] MEDS: dilTIAZem Drip 125 MG/125 ML PREMIX IV SCH (16:41)
[2019-10-24] MEDS: guaiFENesin 200 MG/10 ML UDCUP PER TUBE SCH ×4 (04:33→23:51)
[2019-10-24 06:26] LABS: Calcium 8.2 MG/DL (8.5-10.1); Osmolality,Calculated 313.7 MOS/KG (273-304)
[2019-10-24 06:31] LABS: Basophils # 0.1 10*3/uL (0.0-0.2); Basophils % 0.6 % (0.0-0.8); Eosinophils # 0.1 10*3/uL (0.0-0.87); Eosinophils % 1.7 % (0.00-10.9); Hematocrit 44.6 VOL% (42.0-52.0); Immature Granulocytes % 0.5 %; Immature Granulocytes Absolute 0.04 #; Lymphocytes # 1.1 10*3/uL (1.4-4.0); Mean Corpuscular HGB Conc 29.1 GM/DL (32-36); Mean Corpuscular Volume 85.8 FL (87-102); Mean Platelet Volume 11.7 FL (9.6-12.0); Monocytes % 9.2 % (1.7-12.7); NRBC # 0.03 10*3/uL; Platelet Count 234 T/CUMM (130-400); Red Cell Distribution Width 21.3 % (9.3-17.3); White Blood Count 7.9 T/CUMM (4-12)
[2019-10-24] MEDS: APIXABAN 5 MG TABLET PO SCH ×2 (09:45→23:46)
[2019-10-24] MEDS: METOPROLOL TARTRATE 25 MG TABLET PO SCH ×2 (09:45→23:45)
[2019-10-24] MEDS: FUROSEMIDE 40 MG/5 ML UDCUP PO SCH ×2 (09:45→16:51)
[2019-10-24] MEDS: hydrALAZINE 10 MG TABLET PO SCH ×2 (09:45→23:46)
[2019-10-24] MEDS: INSULIN LISPRO 100 UNIT/ML SUBCUT SCH ×4 (09:46→23:51)
[2019-10-24] MEDS: PANTOPRAZOLE 40 MG VIAL IV SCH (09:46)
[2019-10-24] MEDS: ASCORBIC ACID 500 MG TABLET PO SCH ×2 (09:46→23:45)
[2019-10-25] MEDS: guaiFENesin 200 MG/10 ML UDCUP PER TUBE SCH ×4 (04:53→21:28)
[2019-10-25] MEDS: INSULIN LISPRO 100 UNIT/ML SUBCUT SCH ×4 (09:08→21:33)
[2019-10-25] MEDS: hydrALAZINE 10 MG TABLET PO SCH ×2 (09:08→21:31)
[2019-10-25] MEDS: APIXABAN 5 MG TABLET PO SCH ×2 (09:08→21:30)
[2019-10-25] MEDS: ASCORBIC ACID 500 MG TABLET PO SCH ×2 (09:08→21:30)
[2019-10-25] MEDS: METOPROLOL TARTRATE 25 MG TABLET PO SCH ×2 (09:08→21:31)
[2019-10-25] MEDS: FUROSEMIDE 40 MG/5 ML UDCUP PO SCH ×2 (09:08→16:10)
[2019-10-25] MEDS: PANTOPRAZOLE 40 MG VIAL IV SCH (09:09)
[2019-10-25 09:20] LABS: Calcium 8.7 MG/DL (8.5-10.1); Osmolality,Calculated 309.8 MOS/KG (273-304)
[2019-10-25 09:25] LABS: Basophils # 0.1 10*3/uL (0.0-0.2); Basophils % 0.8 % (0.0-0.8); Eosinophils # 0.1 10*3/uL (0.0-0.87); Eosinophils % 1.2 % (0.00-10.9); Hematocrit 44.5 VOL% (42.0-52.0); Hemoglobin 13.2 GM/DL (14.0-18.0); Immature Granulocytes % 0.4 %; Immature Granulocytes Absolute 0.03 #; Lymphocytes # 1.3 10*3/uL (1.4-4.0); Lymphocytes % 17.6 % (21.2-54.2); Mean Corpuscular HGB Conc 29.7 GM/DL (32-36); Mean Corpuscular Volume 83.8 FL (87-102); Mean Platelet Volume 11.9 FL (9.6-12.0); Monocytes % 10.1 % (1.7-12.7); Neutrophils % 69.9 % (38.7-73.9); Platelet Count 266 T/CUMM (130-400); Red Blood Count 5.31 MC/CUMM (3.8-5.5); Red Cell Distribution Width 21.6 % (9.3-17.3); White Blood Count 7.6 T/CUMM (4-12)
[2019-10-25 09:27] LABS: Platelet Estimate Adequate
[2019-10-25] MEDS: INSULIN GLARGINE 100 UNIT/ML SUBCUT SCH (16:10)
[2019-10-26] MEDS: guaiFENesin 200 MG/10 ML UDCUP PER TUBE SCH ×4 (04:19→21:32)
[2019-10-26] MEDS: INSULIN LISPRO 100 UNIT/ML SUBCUT SCH ×4 (09:34→21:27)
[2019-10-26] MEDS: FUROSEMIDE 40 MG/5 ML UDCUP PO SCH (10:25)
[2019-10-26] MEDS: ASCORBIC ACID 500 MG TABLET PO SCH ×2 (10:26→21:28)
[2019-10-26] MEDS: APIXABAN 5 MG TABLET PO SCH ×2 (10:26→21:28)
[2019-10-26] MEDS: METOPROLOL TARTRATE 25 MG TABLET PO SCH ×2 (10:26→21:28)
[2019-10-26] MEDS: INSULIN GLARGINE 100 UNIT/ML SUBCUT SCH (10:26)
[2019-10-26] MEDS: hydrALAZINE 10 MG TABLET PO SCH ×2 (10:26→21:28)
[2019-10-26] MEDS: PANTOPRAZOLE 40 MG VIAL IV SCH (10:27)
[2019-10-27] MEDS: guaiFENesin 200 MG/10 ML UDCUP PER TUBE SCH ×4 (04:20→22:10)
[2019-10-27] MEDS: INSULIN LISPRO 100 UNIT/ML SUBCUT SCH ×4 (08:36→22:10)
[2019-10-27] MEDS: INSULIN GLARGINE 100 UNIT/ML SUBCUT SCH (09:20)
[2019-10-27] MEDS: PANTOPRAZOLE 40 MG VIAL IV SCH (09:21)
[2019-10-27] MEDS: ASCORBIC ACID 500 MG TABLET PO SCH ×2 (09:21→22:09)
[2019-10-27] MEDS: FUROSEMIDE 40 MG/5 ML UDCUP PO SCH (09:21)
[2019-10-27] MEDS: APIXABAN 5 MG TABLET PO SCH ×2 (09:22→22:09)
[2019-10-27] MEDS: hydrALAZINE 10 MG TABLET PO SCH ×2 (09:22→22:09)
[2019-10-27] MEDS: METOPROLOL TARTRATE 25 MG TABLET PO SCH ×2 (09:22→22:10)
[2019-10-28] MEDS: guaiFENesin 200 MG/10 ML UDCUP PER TUBE SCH ×2 (02:30→09:13)
[2019-10-28] MEDS: INSULIN LISPRO 100 UNIT/ML SUBCUT SCH ×2 (07:50→11:59)
[2019-10-28] MEDS: APIXABAN 5 MG TABLET PO SCH (09:14)
[2019-10-28] MEDS: INSULIN GLARGINE 100 UNIT/ML SUBCUT SCH (09:14)
[2019-10-28] MEDS: FUROSEMIDE 40 MG/5 ML UDCUP PO SCH (09:14)
[2019-10-28] MEDS: METOPROLOL TARTRATE 25 MG TABLET PO SCH (09:14)
[2019-10-28] MEDS: hydrALAZINE 10 MG TABLET PO SCH (09:14)
[2019-10-28] MEDS: ASCORBIC ACID 500 MG TABLET PO SCH (09:14)
[2019-10-28] MEDS: PANTOPRAZOLE 40 MG VIAL IV SCH (09:15)
[2019-10-28 12:22] VITALS: BP 133/85
== END 2019-10-28 13:40 | DRG 291 ==
LOC: N.TELES 13:05 → SUATTDRO 13:05 → N.ICU 10-09 17:55 → N.CLINP 10-16 23:43 → N.3E 10-17 14:57 → N.TELEN 10-19 17:56
PROVIDERS: ADMIT Internal Medicine; ATTEND Internal Medicine

== ENCOUNTER 2019-11-05 05:33 | Inpatient (IN) ==
[2019-11-05] MEDS ORDERED: DILTIAZEM 50 MG/10 ML VIAL IV STA (06:04)
[2019-11-05 06:19] LABS: Basophils % 0.6 % (0.0-0.8); Eosinophils # 0.1 10*3/uL (0.0-0.87); Eosinophils % 1.2 % (0.00-10.9); Hematocrit 34.7 VOL% (42.0-52.0); Hemoglobin 12.5 GM/DL (14.0-18.0); Immature Granulocytes % 0.3 %; Immature Granulocytes Absolute 0.02 #; Lymphocytes # 1.5 10*3/uL (1.4-4.0); Lymphocytes % 23.3 % (21.2-54.2); Mean Corpuscular Volume 95.9 FL (87-102); Mean Platelet Volume 11.4 FL (9.6-12.0); Monocytes % 9.8 % (1.7-12.7); NRBC # 0.02 10*3/uL; Neutrophils % 64.8 % (38.7-73.9); Platelet Count 196 T/CUMM (130-400); Red Blood Count 3.62 MC/CUMM (3.8-5.5); White Blood Count 6.4 T/CUMM (4-12)
[2019-11-05 06:28] LABS: INR 1.2; PT Patient Result 12.4 SECS (9.8-11.9); Partial Thromboplastin Time 34.1 SECS (23.9-33.8)
[2019-11-05 06:43] LABS: Alanine Aminotransferase 40 U/L (16-61); Albumin 2.7 G/DL (3.4-5.0); Alkaline Phosphatase 181 U/L (45-117); Aspartate Amino Transferase 27 U/L (0-37); Blood Urea Nitrogen 83 MG/DL (7-18); Calcium 8.2 MG/DL (8.5-10.1); Estimated Glom Filtration Rate 26 ML/MIN; Ferritin 67.1 ng/ml (26-388); Glucose 125 MG/DL (74-106); Osmolality,Calculated 302.5 MOS/KG (273-304); Total Protein 6.7 G/DL (6.4-8.3)
[2019-11-05 06:45] LABS: Troponin I 0.076 NG/ML (0.00-0.045)
[2019-11-05 07:00] LABS: Apearance,Urine Slightly Hazy (Clear); Bacteria,Urine Occasional /HPF (Few); Bilirubin,Urine Negative (Negative); Blood, Urine Negative (Negative); Glucose,Urine (UA) Negative (Negative); Hyaline Casts,Urine 41 /LPF (0-3); Ketones,Urine Negative (Negative); Mucus,Urine Occasional /LPF (Occasional); Nitrite,Urine Negative (Negative); Protein,Urine 100 MG/DL; RBC,Urine 4 /HPF (0-4); Urine Color Amber (Yellow); Urine Specific Gravity 1.017 (1.001-1.035); Urine Urobilinogen < 2.0 EU/DL (0.2-1.0); WBC,Urine 2 /HPF (0-6)
[2019-11-05 07:19] LABS: Barbiturates Screen,Urine Negative (Negative); Benzodiazepines Screen,Urine Negative (Negative); Cannabinoid Screen,Urine Negative (Negative); Opiate Screen,Urine Positive (Negative); Phencyclidine Screen,Urine Negative (Negative)
[2019-11-05 07:44] LABS: Hypochromasia 1+; Ovalocytes Slight; Platelet Estimate Adequate
[2019-11-05] MEDS ORDERED: ONDANSETRON 4 MG/2 ML VIAL IV PRN (08:06)
[2019-11-05] MEDS ORDERED: DOCUSATE SODIUM 100 MG CAPSULE PO PRN (08:06)
[2019-11-05] MEDS ORDERED: GLUCAGON 1 MG VIAL IM PRN (08:06)
[2019-11-05] MEDS ORDERED: DEXTROSE 50% 25 GM/50 ML VIAL IV PRN (08:06)
[2019-11-05] MEDS ORDERED: FUROSEMIDE 40 MG/4 ML VIAL IV ONE (08:21)
[2019-11-05] MEDS: MULTIVITAMIN (CENTRUM) TABLET PO SCH (11:01)
[2019-11-05] MEDS: ASPIRIN EC 81 MG TABLET PO SCH (11:01)
[2019-11-05] MEDS: hydrALAZINE 10 MG TABLET PO SCH ×2 (11:02→22:12)
[2019-11-05] MEDS: PANTOPRAZOLE 40 MG TABLET PO SCH (11:02)
[2019-11-05] MEDS: METOPROLOL TARTRATE 50 MG TABLET PO SCH ×2 (11:02→22:11)
[2019-11-05] MEDS: APIXABAN 5 MG TABLET PO SCH ×2 (11:02→22:12)
[2019-11-05] MEDS: INSULIN LISPRO 100 UNIT/ML SUBCUT SCH ×3 (11:38→22:13)
[2019-11-05] MEDS: ACETAMINOPHEN 325 MG TABLET PO PRN (13:43)
[2019-11-05] MEDS: INSULIN GLARGINE 100 UNIT/ML SUBCUT SCH (13:47)
[2019-11-05] MEDS ORDERED: DILTIAZEM 50 MG/10 ML VIAL IV ONE (17:36)
[2019-11-05] MEDS: SIMVASTATIN 10 MG TABLET PO SCH (22:11)
[2019-11-06 06:45] LABS: Albumin 2.8 G/DL (3.4-5.0); Bilirubin,Total 1.7 MG/DL (0.2-1.0); Calcium 9.2 MG/DL (8.5-10.1); Osmolality,Calculated 300.7 MOS/KG (273-304); Total Protein 7.1 G/DL (6.4-8.3)
[2019-11-06 07:22] LABS: Hematocrit 45.1 VOL% (42.0-52.0); Hemoglobin 13.2 GM/DL (14.0-18.0); Mean Corpuscular Volume 85.7 FL (87-102); Red Blood Count 5.26 MC/CUMM (3.8-5.5)
[2019-11-06 07:23] LABS: Basophils % 0.4 % (0.0-0.8); Immature Granulocytes % 0.3 %; Immature Granulocytes Absolute 0.03 #; Mean Corpuscular HGB Conc 29.3 GM/DL (32-36); Mean Platelet Volume 11.7 FL (9.6-12.0); Monocytes % 9.3 % (1.7-12.7); NRBC # 0.05 10*3/uL; Platelet Count 189 T/CUMM (130-400); Red Cell Distribution Width 23.6 % (9.3-17.3)
[2019-11-06 07:45] LABS: Hypochromasia 1+; Platelet Estimate Adequate
[2019-11-06] MEDS: INSULIN LISPRO 100 UNIT/ML SUBCUT SCH ×4 (08:13→21:56)
[2019-11-06] MEDS: ACETAMINOPHEN 325 MG TABLET PO PRN (08:33)
[2019-11-06] MEDS: MULTIVITAMIN (CENTRUM) TABLET PO SCH (08:33)
[2019-11-06] MEDS: PANTOPRAZOLE 40 MG TABLET PO SCH (08:34)
[2019-11-06] MEDS: hydrALAZINE 10 MG TABLET PO SCH ×2 (08:34→21:56)
[2019-11-06] MEDS: INSULIN GLARGINE 100 UNIT/ML SUBCUT SCH (08:34)
[2019-11-06] MEDS: METOPROLOL TARTRATE 100 MG TABLET PO SCH ×2 (08:34→21:56)
[2019-11-06] MEDS: HEPARIN 5,000 UNIT/1 ML VIAL SUBCUT SCH ×2 (08:34→21:56)
[2019-11-06] MEDS: ASPIRIN EC 81 MG TABLET PO SCH (08:34)
[2019-11-06] MEDS ORDERED: SODIUM CHLORIDE 0.9% 1,000 ML IV SCH (15:30)
[2019-11-06] MEDS: SIMVASTATIN 10 MG TABLET PO SCH (21:56)
[2019-11-07] MEDS: DEXTROSE 10% 250 ML BAG IV PRN ×2 (08:36→21:29)
[2019-11-07] MEDS: INSULIN LISPRO 100 UNIT/ML SUBCUT SCH ×4 (08:39→21:24)
[2019-11-07 10:07] LABS: Lymphocytes,Pleural Fluid 29 %; Monocytes,Pleural Fluid 12 %; Neutrophils,Pleural Fluid 59 %
[2019-11-07 10:08] LABS: RBC,Pleural Fluid 726 T/CUMM
[2019-11-07] MEDS: HEPARIN 5,000 UNIT/1 ML VIAL SUBCUT SCH ×2 (10:35→22:18)
[2019-11-07] MEDS: ASPIRIN EC 81 MG TABLET PO SCH (11:20)
[2019-11-07] MEDS: MULTIVITAMIN (CENTRUM) TABLET PO SCH (11:20)
[2019-11-07] MEDS: hydrALAZINE 10 MG TABLET PO SCH ×2 (11:20→22:19)
[2019-11-07] MEDS: METOPROLOL TARTRATE 100 MG TABLET PO SCH ×2 (11:21→22:19)
[2019-11-07] MEDS: PANTOPRAZOLE 40 MG TABLET PO SCH (11:21)
[2019-11-07 11:22] LABS: Osmolality,Calculated 303.7 MOS/KG (273-304)
[2019-11-07 15:19] LABS: Apearance,Urine CLOUDY (Clear); Bilirubin,Urine Negative (Negative); Blood, Urine Large mg/dL (Negative); Glucose,Urine (UA) Negative (Negative); Hyaline Casts,Urine 71 /LPF (0-3); Ketones,Urine Negative (Negative); Nitrite,Urine Negative (Negative); Protein,Urine 100 MG/DL; RBC,Urine 2163 /HPF (0-4); Urine Color Amber (Yellow); Urine Specific Gravity 1.018 (1.001-1.035); Urine Urobilinogen < 2.0 EU/DL (0.2-1.0); WBC,Urine 120 /HPF (0-6)
[2019-11-07] MEDS: SIMVASTATIN 10 MG TABLET PO SCH (22:19)
[2019-11-08 07:14] LABS: Calcium 8.6 MG/DL (8.5-10.1); Osmolality,Calculated 312.3 MOS/KG (273-304)
[2019-11-08 07:55] LABS: Basophils % 0.2 % (0.0-0.8); Hematocrit 43.6 VOL% (42.0-52.0); Immature Granulocytes % 0.5 %; Immature Granulocytes Absolute 0.06 #; Lymphocytes # 1.2 10*3/uL (1.4-4.0); Lymphocytes % 9.8 % (21.2-54.2); Mean Corpuscular HGB Conc 30.3 GM/DL (32-36); Mean Corpuscular Volume 84.8 FL (87-102); Mean Platelet Volume 11.3 FL (9.6-12.0); Monocytes % 10.6 % (1.7-12.7); NRBC # 0.07 10*3/uL; Neutrophils % 78.9 % (38.7-73.9); Platelet Count 144 T/CUMM (130-400); Red Blood Count 5.14 MC/CUMM (3.8-5.5); Red Cell Distribution Width 23.9 % (9.3-17.3)
[2019-11-08 07:57] LABS: Hemoglobin 13.2 GM/DL (14.0-18.0); Platelet Estimate Adequate
[2019-11-08 07:58] LABS: Anisocytosis 2+; Burr Cells Few; Poikilocytosis 1+
[2019-11-08] MEDS: INSULIN LISPRO 100 UNIT/ML SUBCUT SCH ×4 (08:10→21:35)
[2019-11-08] MEDS: HEPARIN 5,000 UNIT/1 ML VIAL SUBCUT SCH ×2 (08:41→21:35)
[2019-11-08] MEDS: METOPROLOL TARTRATE 100 MG TABLET PO SCH ×2 (08:42→21:35)
[2019-11-08] MEDS: ASPIRIN EC 81 MG TABLET PO SCH (08:43)
[2019-11-08] MEDS: PANTOPRAZOLE 40 MG TABLET PO SCH (08:43)
[2019-11-08] MEDS: hydrALAZINE 10 MG TABLET PO SCH ×3 (08:43→21:38)
[2019-11-08] MEDS: MULTIVITAMIN (CENTRUM) TABLET PO SCH (08:43)
[2019-11-08] MEDS ORDERED: SODIUM POLYSTYRENE SULFATE 15 GM/60 ML BOTTLE PO ONE ×2 (11:07→12:30)
[2019-11-08] MEDS: SIMVASTATIN 10 MG TABLET PO SCH (21:35)
[2019-11-09 06:43] LABS: Basophils % 0.3 % (0.0-0.8); Eosinophils % 0.1 % (0.00-10.9); Hematocrit 41.6 VOL% (42.0-52.0); Immature Granulocytes % 0.4 %; Immature Granulocytes Absolute 0.03 #; Lymphocytes % 12.7 % (21.2-54.2); Mean Corpuscular HGB Conc 29.8 GM/DL (32-36); Mean Corpuscular Volume 84.4 FL (87-102); Mean Platelet Volume 10.7 FL (9.6-12.0); Monocytes % 10.6 % (1.7-12.7); NRBC # 0.18 10*3/uL; Neutrophils % 75.9 % (38.7-73.9); Platelet Count 128 T/CUMM (130-400); Red Blood Count 4.93 MC/CUMM (3.8-5.5); White Blood Count 7.5 T/CUMM (4-12)
[2019-11-09 06:45] LABS: Hemoglobin 12.4 GM/DL (14.0-18.0)
[2019-11-09 07:20] LABS: Anisocytosis 1+; Hypochromasia 1+
[2019-11-09 07:21] LABS: Platelet Estimate Adequate; Polychromasia Slight
[2019-11-09] MEDS: INSULIN LISPRO 100 UNIT/ML SUBCUT SCH ×4 (08:00→23:31)
[2019-11-09 08:31] LABS: Calcium 8.3 MG/DL (8.5-10.1); Osmolality,Calculated 313.5 MOS/KG (273-304)
[2019-11-09] MEDS: MULTIVITAMIN (CENTRUM) TABLET PO SCH (10:00)
[2019-11-09] MEDS: ASPIRIN EC 81 MG TABLET PO SCH (10:00)
[2019-11-09] MEDS: METOPROLOL TARTRATE 100 MG TABLET PO SCH ×2 (10:01→21:30)
[2019-11-09] MEDS: PANTOPRAZOLE 40 MG TABLET PO SCH (10:01)
[2019-11-09] MEDS: hydrALAZINE 10 MG TABLET PO SCH ×2 (10:01→21:30)
[2019-11-09] MEDS: HEPARIN 5,000 UNIT/1 ML VIAL SUBCUT SCH ×2 (10:01→21:30)
[2019-11-09] MEDS: SIMVASTATIN 10 MG TABLET PO SCH (21:30)
[2019-11-10] MEDS: ACETAMINOPHEN 325 MG TABLET PO PRN ×2 (03:08→21:11)
[2019-11-10] MEDS: INSULIN LISPRO 100 UNIT/ML SUBCUT SCH ×4 (08:42→23:31)
[2019-11-10] MEDS: METOPROLOL TARTRATE 100 MG TABLET PO SCH ×2 (08:43→21:10)
[2019-11-10] MEDS: ASPIRIN EC 81 MG TABLET PO SCH (08:43)
[2019-11-10] MEDS: MULTIVITAMIN (CENTRUM) TABLET PO SCH (08:43)
[2019-11-10] MEDS: PANTOPRAZOLE 40 MG TABLET PO SCH (08:43)
[2019-11-10] MEDS: HEPARIN 5,000 UNIT/1 ML VIAL SUBCUT SCH ×2 (08:43→20:00)
[2019-11-10] MEDS: hydrALAZINE 10 MG TABLET PO SCH ×2 (08:43→21:10)
[2019-11-10] MEDS: SIMVASTATIN 10 MG TABLET PO SCH (21:10)
[2019-11-11 06:02] LABS: Calcium 7.9 MG/DL (8.5-10.1); Osmolality,Calculated 313.7 MOS/KG (273-304)
[2019-11-11 06:14] LABS: Basophils % 0.4 % (0.0-0.8); Eosinophils # 0.1 10*3/uL (0.0-0.87); Eosinophils % 0.9 % (0.00-10.9); Hematocrit 41.2 VOL% (42.0-52.0); Hemoglobin 12.4 GM/DL (14.0-18.0); Immature Granulocytes % 0.4 %; Immature Granulocytes Absolute 0.03 #; Lymphocytes % 14.5 % (21.2-54.2); Mean Corpuscular HGB Conc 30.1 GM/DL (32-36); Mean Corpuscular Volume 87.5 FL (87-102); Mean Platelet Volume 11.1 FL (9.6-12.0); Monocytes % 10.2 % (1.7-12.7); NRBC # 0.12 10*3/uL; Neutrophils % 73.6 % (38.7-73.9); Platelet Count 123 T/CUMM (130-400); Red Blood Count 4.71 MC/CUMM (3.8-5.5); Red Cell Distribution Width 23.8 % (9.3-17.3)
[2019-11-11 06:21] LABS: Anisocytosis 1+; Platelet Estimate Adequate
[2019-11-11 06:24] LABS: Macrocytosis 1+
[2019-11-11] MEDS: INSULIN LISPRO 100 UNIT/ML SUBCUT SCH ×3 (09:11→15:58)
[2019-11-11] MEDS: hydrALAZINE 10 MG TABLET PO SCH ×2 (09:12→20:27)
[2019-11-11] MEDS: ASPIRIN EC 81 MG TABLET PO SCH (09:12)
[2019-11-11] MEDS: HEPARIN 5,000 UNIT/1 ML VIAL SUBCUT SCH ×2 (09:12→20:30)
[2019-11-11] MEDS: MULTIVITAMIN (CENTRUM) TABLET PO SCH (09:13)
[2019-11-11] MEDS: METOPROLOL TARTRATE 100 MG TABLET PO SCH ×2 (09:13→20:27)
[2019-11-11] MEDS: PANTOPRAZOLE 40 MG TABLET PO SCH (09:13)
[2019-11-11] MEDS: SIMVASTATIN 10 MG TABLET PO SCH (20:27)
[2019-11-12] MEDS: INSULIN LISPRO 100 UNIT/ML SUBCUT SCH ×5 (00:28→21:15)
[2019-11-12 05:50] LABS: Basophils % 0.2 % (0.0-0.8); Hematocrit 38.9 VOL% (42.0-52.0); Hemoglobin 13.8 GM/DL (14.0-18.0); Immature Granulocytes % 1.6 %; Lymphocytes # 0.5 10*3/uL (1.4-4.0); Lymphocytes % 7.4 % (21.2-54.2); Mean Corpuscular HGB Conc 35.5 GM/DL (32-36); Mean Corpuscular Volume 91.1 FL (87-102); Mean Platelet Volume 10.6 FL (9.6-12.0); Monocytes % 6.2 % (1.7-12.7); NRBC # 0.21 10*3/uL; Neutrophils % 84.6 % (38.7-73.9); Platelet Count 127 T/CUMM (130-400); Red Blood Count 4.27 MC/CUMM (3.8-5.5); Red Cell Distribution Width 25.4 % (9.3-17.3); White Blood Count 6.3 T/CUMM (4-12)
[2019-11-12 06:07] LABS: Calcium 8.4 MG/DL (8.5-10.1); Osmolality,Calculated 311.1 MOS/KG (273-304)
[2019-11-12 06:13] LABS: Hypochromasia 1+
[2019-11-12 06:14] LABS: Anisocytosis 1+; Ovalocytes Slight; Platelet Estimate Adequate
[2019-11-12] MEDS: PANTOPRAZOLE 40 MG TABLET PO SCH (09:52)
[2019-11-12] MEDS: hydrALAZINE 10 MG TABLET PO SCH ×2 (09:52→21:14)
[2019-11-12] MEDS: ASPIRIN EC 81 MG TABLET PO SCH (09:52)
[2019-11-12] MEDS: MULTIVITAMIN (CENTRUM) TABLET PO SCH (09:52)
[2019-11-12] MEDS: HEPARIN 5,000 UNIT/1 ML VIAL SUBCUT SCH ×2 (09:52→21:15)
[2019-11-12] MEDS: METOPROLOL TARTRATE 100 MG TABLET PO SCH ×2 (09:52→21:15)
[2019-11-12] MEDS: SODIUM ZIRCONIUM CYCLOSILICATE 10 GM PACK PO SCH ×2 (16:52→21:20)
[2019-11-12] MEDS: SIMVASTATIN 10 MG TABLET PO SCH (21:15)
[2019-11-13 05:28] LABS: Albumin 2.7 G/DL (3.4-5.0); Calcium 8.8 MG/DL (8.5-10.1); Osmolality,Calculated 314.2 MOS/KG (273-304)
[2019-11-13] MEDS ORDERED: SODIUM POLYSTYRENE SULFATE 15 GM/60 ML BOTTLE PO ONE (05:55)
[2019-11-13] MEDS: INSULIN LISPRO 100 UNIT/ML SUBCUT SCH ×4 (08:39→21:34)
[2019-11-13] MEDS: hydrALAZINE 10 MG TABLET PO SCH ×2 (09:55→21:33)
[2019-11-13] MEDS: HEPARIN 5,000 UNIT/1 ML VIAL SUBCUT SCH ×2 (09:55→21:33)
[2019-11-13] MEDS: ASPIRIN EC 81 MG TABLET PO SCH (09:55)
[2019-11-13] MEDS: METOPROLOL TARTRATE 100 MG TABLET PO SCH ×2 (09:55→21:33)
[2019-11-13] MEDS: PANTOPRAZOLE 40 MG TABLET PO SCH (09:56)
[2019-11-13] MEDS: SODIUM ZIRCONIUM CYCLOSILICATE 10 GM PACK PO SCH ×2 (10:02→14:50)
[2019-11-13] MEDS: SIMVASTATIN 10 MG TABLET PO SCH (21:33)
[2019-11-14] MEDS: METOPROLOL TARTRATE 100 MG TABLET PO SCH ×2 (08:21→21:09)
[2019-11-14] MEDS: INSULIN LISPRO 100 UNIT/ML SUBCUT SCH ×4 (08:21→21:11)
[2019-11-14] MEDS: PANTOPRAZOLE 40 MG TABLET PO SCH (08:21)
[2019-11-14] MEDS: ASPIRIN EC 81 MG TABLET PO SCH (08:21)
[2019-11-14] MEDS: HEPARIN 5,000 UNIT/1 ML VIAL SUBCUT SCH ×2 (08:21→21:09)
[2019-11-14] MEDS: hydrALAZINE 10 MG TABLET PO SCH ×2 (08:21→21:10)
[2019-11-14] MEDS: ACETAMINOPHEN 325 MG TABLET PO PRN (11:58)
[2019-11-14] MEDS: FUROSEMIDE 40 MG/4 ML VIAL IV SCH (16:58)
[2019-11-14 17:55] LABS: Albumin 2.9 G/DL (3.4-5.0); Calcium 9.2 MG/DL (8.5-10.1)
[2019-11-14] MEDS: SIMVASTATIN 10 MG TABLET PO SCH (21:10)
[2019-11-15 05:27] LABS: Calcium 8.8 MG/DL (8.5-10.1); Osmolality,Calculated 322.8 MOS/KG (273-304)
[2019-11-15] MEDS: INSULIN LISPRO 100 UNIT/ML SUBCUT SCH ×4 (08:06→21:06)
[2019-11-15] MEDS ORDERED: BUPIVACAINE MPF 0.25% 30 ML VIAL ONE (09:23)
[2019-11-15] MEDS ORDERED: HEPARIN 5,000 UNIT/1 ML VIAL ONE (09:23)
[2019-11-15] MEDS ORDERED: LIDOCAINE 1%/EPI INJ 20 ML VIAL ONE (09:23)
[2019-11-15] MEDS ORDERED: SODIUM CHLORIDE 0.9% 250 ML IV SCH (10:00)
[2019-11-15 10:28] LABS: ABG Base Excess -8.7 MMOL/L (-2.5-2.5); ABG HCO3 17.5 MMOL/L (20-26); ABG PCO2 47.5 MM HG (35-48); ABG PH 7.219 (7.35-7.45); ABG PO2 92.6 MM HG (80-95); ABG TCO2 17.3 MMOL/L (23-27)
[2019-11-15] MEDS: FUROSEMIDE 40 MG/4 ML VIAL IV SCH ×2 (10:35→16:13)
[2019-11-15] MEDS: METOPROLOL TARTRATE 100 MG TABLET PO SCH ×2 (10:35→21:07)
[2019-11-15] MEDS: PANTOPRAZOLE 40 MG TABLET PO SCH (10:35)
[2019-11-15] MEDS: ASPIRIN EC 81 MG TABLET PO SCH (10:35)
[2019-11-15] MEDS: hydrALAZINE 10 MG TABLET PO SCH ×2 (10:35→21:06)
[2019-11-15] MEDS: HEPARIN 5,000 UNIT/1 ML VIAL SUBCUT SCH (10:35)
[2019-11-15] MEDS ORDERED: ceFAZolin 1,000 MG VIAL ONE (11:24)
[2019-11-15 13:41] LABS: Hepatitis B Core IgM Quant 0.16 Index; Hepatitis B Surface Ag Result Negative (Negative); Hepatitis C Virus Ab Result Negative (Negative)
[2019-11-15] MEDS: SIMVASTATIN 10 MG TABLET PO SCH (21:01)
[2019-11-16 06:54] LABS: Albumin 2.9 G/DL (3.4-5.0); Calcium 8.7 MG/DL (8.5-10.1); Osmolality,Calculated 309.8 MOS/KG (273-304)
[2019-11-16] MEDS: INSULIN LISPRO 100 UNIT/ML SUBCUT SCH ×4 (08:05→21:33)
[2019-11-16] MEDS: FUROSEMIDE 40 MG/4 ML VIAL IV SCH ×2 (08:06→16:45)
[2019-11-16] MEDS: METOPROLOL TARTRATE 100 MG TABLET PO SCH ×2 (12:39→21:34)
[2019-11-16] MEDS: ASPIRIN EC 81 MG TABLET PO SCH (12:40)
[2019-11-16] MEDS: PANTOPRAZOLE 40 MG TABLET PO SCH (12:40)
[2019-11-16] MEDS: hydrALAZINE 10 MG TABLET PO SCH ×2 (12:40→21:33)
[2019-11-16] MEDS: HEPARIN 5,000 UNIT/1 ML VIAL SUBCUT SCH (21:33)
[2019-11-16] MEDS: SIMVASTATIN 10 MG TABLET PO SCH (21:34)
[2019-11-17] MEDS: INSULIN LISPRO 100 UNIT/ML SUBCUT SCH ×4 (07:42→22:17)
[2019-11-17] MEDS: FUROSEMIDE 40 MG/4 ML VIAL IV SCH ×2 (08:56→16:14)
[2019-11-17] MEDS: hydrALAZINE 10 MG TABLET PO SCH ×2 (08:57→22:17)
[2019-11-17] MEDS: HEPARIN 5,000 UNIT/1 ML VIAL SUBCUT SCH ×2 (08:57→22:19)
[2019-11-17] MEDS: ASPIRIN EC 81 MG TABLET PO SCH (08:57)
[2019-11-17] MEDS: METOPROLOL TARTRATE 100 MG TABLET PO SCH ×2 (08:58→22:18)
[2019-11-17] MEDS: PANTOPRAZOLE 40 MG TABLET PO SCH (08:58)
[2019-11-17] MEDS: SIMVASTATIN 10 MG TABLET PO SCH (22:19)
[2019-11-18 06:50] LABS: Basophils % 0.1 % (0.0-0.8); Eosinophils % 0.1 % (0.00-10.9); Hematocrit 37.9 VOL% (42.0-52.0); Hemoglobin 13.9 GM/DL (14.0-18.0); Immature Granulocytes % 0.8 %; Immature Granulocytes Absolute 0.06 #; Lymphocytes # 0.9 10*3/uL (1.4-4.0); Lymphocytes % 11.9 % (21.2-54.2); Mean Corpuscular HGB Conc 36.7 GM/DL (32-36); Mean Corpuscular Volume 89.8 FL (87-102); Mean Platelet Volume 10.7 FL (9.6-12.0); Monocytes % 9.9 % (1.7-12.7); NRBC # 0.33 10*3/uL; Neutrophils % 77.2 % (38.7-73.9); Red Blood Count 4.22 MC/CUMM (3.8-5.5); Red Cell Distribution Width 26.8 % (9.3-17.3); White Blood Count 7.2 T/CUMM (4-12)
[2019-11-18 07:02] LABS: Calcium 8.9 MG/DL (8.5-10.1); Osmolality,Calculated 301.1 MOS/KG (273-304)
[2019-11-18 07:03] LABS: Platelet Count 92 T/CUMM (130-400)
[2019-11-18] MEDS: INSULIN LISPRO 100 UNIT/ML SUBCUT SCH ×4 (09:35→21:06)
[2019-11-18] MEDS: PANTOPRAZOLE 40 MG TABLET PO SCH (09:49)
[2019-11-18] MEDS: HEPARIN 5,000 UNIT/1 ML VIAL SUBCUT SCH ×2 (09:49→20:10)
[2019-11-18] MEDS: METOPROLOL TARTRATE 100 MG TABLET PO SCH ×2 (09:49→20:10)
[2019-11-18] MEDS: ASPIRIN EC 81 MG TABLET PO SCH (09:50)
[2019-11-18] MEDS: FUROSEMIDE 40 MG/4 ML VIAL IV SCH (09:50)
[2019-11-18] MEDS: hydrALAZINE 10 MG TABLET PO SCH ×2 (09:50→20:10)
[2019-11-18] MEDS: SIMVASTATIN 10 MG TABLET PO SCH (20:10)
[2019-11-19 04:04] VITALS: BP 87/66
[2019-11-19 06:01] LABS: Basophils % 0.1 % (0.0-0.8); Hematocrit 40.4 VOL% (42.0-52.0); Hemoglobin 14.6 GM/DL (14.0-18.0); Immature Granulocytes % 0.9 %; Immature Granulocytes Absolute 0.07 #; Lymphocytes # 0.4 10*3/uL (1.4-4.0); Lymphocytes % 5.5 % (21.2-54.2); Mean Corpuscular HGB Conc 36.1 GM/DL (32-36); Mean Corpuscular Volume 90.8 FL (87-102); Mean Platelet Volume 11.3 FL (9.6-12.0); Monocytes % 7.5 % (1.7-12.7); NRBC # 0.59 10*3/uL; Platelet Count 113 T/CUMM (130-400); Red Blood Count 4.45 MC/CUMM (3.8-5.5); Red Cell Distribution Width 27.3 % (9.3-17.3); White Blood Count 7.5 T/CUMM (4-12)
[2019-11-19 06:16] LABS: Calcium 8.7 MG/DL (8.5-10.1); Osmolality,Calculated 307.1 MOS/KG (273-304)
[2019-11-19 06:29] LABS: Hypochromasia 1+
[2019-11-19 06:30] LABS: Acanthocytes Few; Macrocytosis 1+; Ovalocytes Slight; Polychromasia Slight; Target Cells Slight
[2019-11-19 06:31] LABS: Anisocytosis 1+; Platelet Estimate Decreased
[2019-11-19] MEDS ORDERED: FUROSEMIDE 40 MG/5 ML UDCUP PO SCH (09:00)
== END 2019-11-19 10:30 | disposition expired | DRG 291 ==
LOC: EDBD → EDUNIT# → N.ED 05:33 → SUATTDRO 08:06 → N.EDINP 08:06 → N.TELES 09:58 → N.CLINP 11-07 16:36 → N.TELES 11-09 16:28
PROVIDERS: ADMIT Internal Medicine; ATTEND Internal Medicine
PROC: IRTHORA (2019-11-07 09:20)